=== PATIENT | female | born 1970 | race Caucasian/White ===

== ENCOUNTER 2018-09-02 15:49 | Emergency (ER) | payer OTHER ==
[2018-09-02] MEDS: traMADol 50 MG TAB PO (16:23)
[2018-09-02] MEDS: LIDOCAINE 1% (MDV) 20 ML INJ SC (16:24)
[2018-09-02] MEDS: CEFTRIAXONE 1 GM INJ IM (16:24)
== END 2018-09-02 16:45 | disposition home or self-care (01) ==
LOC: FTE 15:49
DX: K04.7 Periapical abscess without sinus (principal)
CPT/HCPCS: 96372; 99284-25